=== PATIENT | male | born 1960 | race Caucasian/White ===

== ENCOUNTER 2021-10-02 16:42 | Emergency (ER) | payer MEDICAID ==
[2021-10-02] MEDS ORDERED: Sodium Chloride 0.9% 2.5 ML Syringe FLUSH PRN (16:46)
[2021-10-02] MEDS ORDERED: Sodium Chloride 0.9% 10 ML Syringe FLUSH PRN (16:46)
[2021-10-02] MEDS ORDERED: Lactated Ringers 1,000 ML IV ONE (16:50)
[2021-10-02 17:23] LABS: BLOOD UREA NITROGEN,BUN 14 mg/dL (7.0-18.0); CARBON DIOXIDE,CO2 16.8 mmol/L (21.0-32.0); CHLORIDE,CL 102 mmol/L (98-107); GLUCOSE RANDOM 184 mg/dL (74-106); POTASSIUM,K 3.5 mmol/L (3.5-5.1); SODIUM,NA 142 mmol/L (136-148)
[2021-10-02 17:28] LABS: ESTIMATED GFR 58 mL/min (>60)
[2021-10-02] MEDS ORDERED: LORazepam 2 MG/ML SDV ONE (17:35)
[2021-10-02] MEDS ORDERED: Midazolam 5 MG/ML SDV ONE ×2 (17:37→17:40)
[2021-10-02] MEDS ORDERED: levETIRAcetam 2,000 MG in Sodium Chloride 0.9% 100 ML IV ONE (17:45)
[2021-10-02] MEDS ORDERED: Acetaminophen 325 MG Tab PO ONE (22:36)
== END 2021-10-02 22:59 | disposition home or self-care (01) ==
LOC: MW.ED 16:42
DX: G40.909 Epilepsy, unspecified, not intractable, without status epilepticus (principal); Z88.2 Allergy status to sulfonamides; Z79.899 Other long term (current) drug therapy; Z79.84 Long term (current) use of oral hypoglycemic drugs; Z20.822 Contact with and (suspected) exposure to COVID-19
CPT/HCPCS: 36415; 70450; 80053; 82803; 83605; 84443; 84484; 85025; 87635; 93005; 96361; 96374; 99284; A9270; J1953; J3490; J7120; 93010; 99285; U0002

== ENCOUNTER 2021-10-03 21:29 | Emergency (ER) | payer MEDICAID ==
[2021-10-03 22:57] LABS: BLOOD UREA NITROGEN,BUN 14 mg/dL (7.0-18.0); CARBON DIOXIDE,CO2 29.2 mmol/L (21.0-32.0); CHLORIDE,CL 106 mmol/L (98-107); ESTIMATED GFR 70 mL/min (>60); GLUCOSE RANDOM 126 mg/dL (74-106); POTASSIUM,K 3.5 mmol/L (3.5-5.1); SODIUM,NA 142 mmol/L (136-148)
== END 2021-10-04 00:01 | disposition home or self-care (01) ==
LOC: MW.ED 21:29
DX: R45.1 Restlessness and agitation (principal); Z79.899 Other long term (current) drug therapy; Z88.2 Allergy status to sulfonamides
CPT/HCPCS: 36415; 80053; 80305-QW; 80307; 81001; 85025; 99284